=== PATIENT | male | born 1965 ===

== ENCOUNTER 2021-11-20 14:59 | Inpatient (IN) | payer OTHER ==
[~2021-11-20] VITALS: Ht 180.3 cm; Wt 95.5 kg
[2021-11-20] MEDS ORDERED: ONDANSETRON HCL 4 MG/2 ML VIAL IV ONE (15:30)
[2021-11-20] MEDS ORDERED: MORPHINE SULFATE 4 MG/ML SYR/VIAL IV ONE (15:30)
[2021-11-20] MEDS ORDERED: ASPirin 81 mg TAB PO ONE (15:30)
[2021-11-20 16:47] LABS: Basophils # (auto) 0.1 10 ^3/uL (0-0.2); Basophils % (auto) 1.1 % (0.0-2.0); Eosinophils # (auto) 0.1 10 ^3/uL (0-0.8); Hemoglobin 15.3 g/dL (13.5-17.5); Lymphocytes # (auto) 1.6 10 ^3/uL (0.4-5.4); Lymphocytes % (auto) 21.6 % (10.0-50.0); Mean Corpuscular Hemoglobin 30.3 pg (28.0-32.0); Mean Corpuscular Hgb Conc. 33.3 g/dL (32.0-36.0); Mean Corpuscular Volume 91.1 fL (80.0-100.0); Monocytes # (auto) 0.5 10 ^3/uL (0-1.3); Monocytes % (auto) 6.4 % (0.0-12.0); Neutrophils # (auto) 5.2 10 ^3/uL (1.6-8.6); Neutrophils % (auto) 69.9 % (37.0-80.0); Red Blood Cells 5.05 10^6/uL (4.5-5.90); White Blood Cell 7.5 10^3/uL (4.4-10.8)
[2021-11-20 16:59] LABS: Albumin 3.7 g/dL (3.4-5.0); Calcium 9.2 mg/dL (8.5-10.1); Magnesium 2.6 mg/dL (1.6-2.6)
[2021-11-20 17:04] LABS: BUN/Creatinine Ratio 13.4; Bilirubin, Total 0.3 mg/dL (0.2-1.0); Total Protein 7.6 g/dL (6.4-8.2)
[2021-11-20] MEDS ORDERED: ACETAMINOPHEN 325 MG TAB PO PRN (19:15)
[2021-11-20] MEDS ORDERED: ONDANSETRON HCL 4 MG/2 ML VIAL IV PRN (19:15)
[2021-11-20] MEDS ORDERED: NITROGLYCERIN 0.4 MG SL TAB SL PRN (19:15)
[2021-11-20] MEDS ORDERED: MORPHINE SULFATE INJECTION 2 MG/ML SYRG IV PRN ×2 (19:15)
[2021-11-20 21:40] VITALS: BP 163/81
[2021-11-21 05:00] VITALS: BP 128/90
[2021-11-21 09:00] VITALS: BP 139/79
[2021-11-21] MEDS: ENOXAPARIN SOD 40 MG/0.4 ML SYRINGE SC SCH (10:27)
[2021-11-21] MEDS: ASPirin 81 mg TAB PO SCH (10:28)
[2021-11-21] MEDS: LISINOPRIL 5 MG TAB PO SCH (10:28)
[2021-11-21] MEDS: METOPROLOL SUCCINATE XL 50 MG TAB PO SCH (10:28)
[2021-11-21 13:00] VITALS: BP 152/88
[2021-11-21] MEDS ORDERED: HYDROcodone-ACET 10/325MG TAB PO PRN (13:15)
[2021-11-21 17:00] VITALS: BP 142/84
[2021-11-21 20:00] VITALS: BP 131/73
[2021-11-21 22:00] VITALS: BP_SYST 116; BP_SYST 131; BP_DIAS 73; BP_DIAS 76
[2021-11-22 05:00] VITALS: BP 113/74
[2021-11-22 09:00] VITALS: BP 129/85
[2021-11-22 13:00] VITALS: BP 143/77
[2021-11-22] MEDS: PANTOPRAZOLE 40 MG TAB PO SCH (15:53)
[2021-11-22] MEDS: ENOXAPARIN SOD 40 MG/0.4 ML SYRINGE SC SCH (15:53)
[2021-11-22] MEDS: LISINOPRIL 5 MG TAB PO SCH (15:53)
[2021-11-22] MEDS: METOPROLOL SUCCINATE XL 50 MG TAB PO SCH (15:53)
[2021-11-22] MEDS: ASPirin 81 mg TAB PO SCH (15:54)
[2021-11-22 17:00] VITALS: BP 109/66
[2021-11-22 20:00] VITALS: BP 143/77
[2021-11-22 22:00] VITALS: BP 112/50
[2021-11-23 05:00] VITALS: BP 143/107
[2021-11-23] MEDS ORDERED: ADENOSINE 81 MG in GIVE UN-DILUTED 0 ML IV ONE (08:00)
[2021-11-23 09:08] VITALS: BP 151/83
[2021-11-23] MEDS: PANTOPRAZOLE 40 MG TAB PO SCH (10:36)
[2021-11-23] MEDS: ENOXAPARIN SOD 40 MG/0.4 ML SYRINGE SC SCH (10:36)
[2021-11-23] MEDS: ASPirin 81 mg TAB PO SCH (10:36)
[2021-11-23] MEDS: METOPROLOL SUCCINATE XL 50 MG TAB PO SCH (10:37)
[2021-11-23] MEDS: LISINOPRIL 5 MG TAB PO SCH (10:37)
[2021-11-23 13:00] VITALS: BP 149/79
[2021-11-23 17:05] VITALS: BP 149/68
[2021-11-23 22:00] VITALS: BP 144/84
[2021-11-24 05:00] VITALS: BP 146/100
[2021-11-24 08:00] VITALS: BP 138/57
[2021-11-24 09:00] VITALS: BP 138/51
[2021-11-24] MEDS: ASPirin 81 mg TAB PO SCH (09:59)
[2021-11-24] MEDS: PANTOPRAZOLE 40 MG TAB PO SCH (09:59)
[2021-11-24] MEDS: METOPROLOL SUCCINATE XL 50 MG TAB PO SCH (10:00)
[2021-11-24] MEDS: ENOXAPARIN SOD 40 MG/0.4 ML SYRINGE SC SCH (10:00)
[2021-11-24] MEDS: LISINOPRIL 5 MG TAB PO SCH (10:00)
[2021-11-24] MEDS ORDERED: PANT40TA2 PO (11:40)
[2021-11-24] MEDS ORDERED: CITA-244 PO (11:40)
[2021-11-24 12:57] VITALS: BP 138/57
== END 2021-11-24 15:03 | DRG 313 ==
LOC: EDBD 14:59 → EEVIPCON 14:59 → ER 14:59 → TELE 19:12 → TELE-WESTW 21:39
PROVIDERS: ADMIT Internal Medicine; ATTEND Internal Medicine
DX: R07.89 Other chest pain (principal); R45.851 Suicidal ideations; F32.A Depression, unspecified; I10 Essential (primary) hypertension; I25.10 Atherosclerotic heart disease of native coronary artery without angina pectoris; Z20.822 Contact with and (suspected) exposure to COVID-19; E78.5 Hyperlipidemia, unspecified; I25.2 Old myocardial infarction; Z82.49 Family history of ischemic heart disease and other diseases of the circulatory system; Z83.3 Family history of diabetes mellitus; Z87.11 Personal history of peptic ulcer disease; Z87.891 Personal history of nicotine dependence
CPT/HCPCS: 36415; 71045; 78452; 80053; 83735; 83880; 84484; 85025; 93005; 96374; 96375; 99291; G0378; J0153; J2405